=== PATIENT | male | born 2000 | race Caucasian/White ===

== ENCOUNTER 2020-02-11 11:36 | Emergency (ER) | payer BC ==
[2020-02-11 12:14] LABS: Rapid Strep Molecular Negative (Negative)
--- NOTE | 2020-02-11 13:38 | ED ---
Throat Pain/Nasal Congestion - HPI Summary HPI Summary: 19 year old male presents with sore throat for the past couple days. He states he was exposed to people with viral pharyngitis. He started amoxicillin 2 days ago that had left over. States he was feeling better on amoxicillin but today feels a little worse. He denies a known fevers but was sweaty last night. He admits to sinus congestion. No cough. No recent travel. No exposure to covid. He states that it hurts to swallow. She states feels shortness breath. No abd pain. No nausea vomiting. Has no medical conditions. - History of Current Complaint Chief Complaint: EDThroatPain Time Seen by Provider: 02/11/20 13:30 - Allergies/Home Medications Allergies/Adverse Reactions: Allergies Allergy/AdvReac Type Severity Reaction Status Date / Time No Known Allergies Allergy Verified 02/11/20 11:52 PMH/Surg Hx/FS Hx/Imm Hx Endocrine/Hematology History: Denies: Hx Anticoagulant Therapy Cardiovascular History: Denies: Hx Pacemaker/ICD Sensory History: Denies: Hx Hearing Aid Psychiatric History: Denies: Hx Panic Disorder Infectious Disease History: No Infectious Disease History: Denies: Traveled Outside the [place] in Last 30 Days - Family History Known Family History: Positive: Non-Contributory - Social History Alcohol Use: Occasionally Substance Use Type: Reports: None Smoking Status (MU): Never Smoked Tobacco Review of Systems Negative: Fever Positive: Sore Throat, Nasal Discharge Negative: Chest Pain Negative: Shortness Of Breath All Other Systems Reviewed And Are Negative: Yes Physical Exam Triage Information Reviewed: Yes Vital Signs On Initial Exam: Initial Vitals Temp Pulse Resp BP Pulse Ox 98.7 F 74 14 119/78 100 02/11/20 11:47 02/11/20 11:47 02/11/20 11:47 02/11/20 11:47 02/11/20 11:47 Vital Signs Reviewed: Yes Appearance: Positive: Well-Appearing Skin: Positive: Warm, Dry Head/Face: Positive: Normal Head/Face Inspection Eyes: Positive: Normal, EOMI, BRAXTON, Conjunctiva Clear ENT: Positive: Pharyngeal erythema, TMs normal, Tonsillar swelling, Tonsillar exudate, Uvula midline, Other - soft palate symmetric. Negative: Trismus, Muffled voice Respiratory/Lung Sounds: Positive: Clear to Auscultation, Breath Sounds Present Cardiovascular: Positive: Normal, RRR Abdomen Description: Positive: Nontender, Soft Bowel Sounds: Positive: Present Musculoskeletal: Positive: Normal Neurological: Positive: Normal Psychiatric: Positive: Normal Procedures - Sedation Patient Received Moderate/Deep Sedation with Procedure: No Diagnostics - Vital Signs Vital Signs Temp Pulse Resp BP Pulse Ox 02/11/20 11:47 98.7 F 74 14 119/78 100 - Laboratory Lab Results: Lab Results 02/11/20 Range/Units 11:50 Group A Strep Rapid Negative (Negative) Lab Statement: Any lab studies that have been ordered have been reviewed, and results considered in the medical decision making process. EENT Course/Dx - Course Course Of Treatment: 19 year old male presents with sore throat for the past couple days. He states he was exposed to people with viral pharyngitis. He started amoxicillin 2 days ago that had left over. States he was feeling better on amoxicillin but today feels a little worse. He denies a known fevers but was sweaty last night. He admits to sinus congestion. No cough. No recent travel. No exposure to covid. He states that it hurts to swallow. She states feels shortness breath. No abd pain. No nausea vomiting. Has no medical conditions. On exam pharynx erythematous. Uvula midline. exudate on tonsils. Strep is negative. Patient has couple days left of amoxicillin so told to finish such. Although discussed likely viral. Patient understands and agrees with plan. - Differential Diagnoses Differential Diagnoses: Pharyngitis, Tonsilitis, URI/Bronchitis - Diagnoses Provider Diagnoses: Pharyngitis Discharge ED - Sign-Out/Discharge Documenting (check all that apply): Patient Departure - Discharge Plan Condition: Good Disposition: HOME Patient Education Materials: Pharyngitis (ED) Referrals: [facility] [place] [facility]ICIAN REFERRAL [Outside] Additional Instructions: Take Tylenol or ibuprofen for pain every 6 hours Can gargle salt water Can use cough drops or products such as cloraseptic spray Establish care with primary care physician Return to ED if develop any new or worsening symptoms - Billing Disposition and Condition Condition: GOOD Disposition: Home - Attestation Statements Provider Attestation: I was available for consultation for this patient. I did not evaluate the patient or participate in any medical decision making or disposition decisions unless I am specifically named in the chart as having consulted on the patient. If I have consulted on the patient, please see my own ED note on the patient encounter. Deena Bermeo MD
[2020-02-11 13:58] VITALS: BP 123/79
== END 2020-02-11 13:56 | disposition home or self-care (01) ==
LOC: ED 11:36
DX: J02.9 Acute pharyngitis, unspecified (principal)
CPT/HCPCS: 87651; 99282